=== PATIENT | male | born 1960 | race Caucasian/White ===

== ENCOUNTER 2020-11-06 16:36 | Emergency (ER) | payer MEDICAID ==
[~2020-11-06] VITALS: Ht 170.2 cm; Wt 77.3 kg
[~2020-11-06 16:36] MED LIST: DIVA-80 PO; OLAN10TA6 PO
[2020-11-06 16:47] VITALS: BP 170/98
== END 2020-11-06 21:37 | disposition left against medical advice (07) ==
LOC: EMS 16:36 → EDUNIT# 16:36 → EMS 18:49
DX: M25.521 Pain in right elbow (principal); F17.210 Nicotine dependence, cigarettes, uncomplicated; Z79.899 Other long term (current) drug therapy